=== PATIENT | female | born 1980 | race Caucasian/White ===

== ENCOUNTER 2021-06-07 05:18 | Emergency (ER) | payer MEDICARE, MEDICAID ==
[~2021-06-07] VITALS: Ht 157.5 cm; Wt 90.3 kg
[~2021-06-07 05:18] MED LIST: ADULT LOW DOSE81 MG PO; AMOXICILLIN 50500 MG PO; AMOXICILLIN875 MG PO; MACROBID 100 M100 M1 PO; NAPROSYN500 MG PO; NORCO 5-325 TA1 EACH PO; PHENERGAN12.5 MG RE; PRENATABS RX T1 EACH PO; PROMETHAZINE-C120 ML PO; ULTRAM 50MG TAB50 MG PO; VENTOLIN HFA 1818 GM INH; ZANTAC150 M2 PO
[2021-06-07 05:55] LABS: URINE BILIRUBIN NEGATIVE (Negative); URINE BLOOD 1+ (Negative); URINE CLARITY CLEAR; URINE COLOR YELLOW; URINE GLUCOSE-RANDOM NEGATIVE (Negative); URINE KETONES 1+ (Negative); URINE LEUKOCYTES-REFLEX TRACE (Negative); URINE NITRITE-REFLEX NEGATIVE (Negative); URINE PROTEIN NEGATIVE (Negative); URINE SPECIFIC GRAVITY 1.025 (1.005-1.030); URINE UROBILINOGEN 0.2 E.U./dl (0.2-1.0)
[2021-06-07 05:58] LABS: AMP/METHAMP Negative (Negative); BARBITURATES Negative (Negative); BENZODIAZEPINES Negative (Negative); COCAINE Negative (Negative); METHADONE Negative (Negative); OPIATES POSITIVE (Negative); PCP Negative (Negative); THC Negative (Negative)
[2021-06-07 06:04] LABS: ABSOLUTE LYMPHOCYTES 1.3 thou/uL (0.8-5.3); ABSOLUTE MONOCYTES 0.5 thou/uL (0.0-1.2); ABSOLUTE NEUTROPHILS 5.6 thou/uL (1.6-8.1); BASOPHILS 0.3 %; EOSINOPHILS 0.2 %; HEMOGLOBIN 8.4 gm/dL (12.0-15.0); LYMPHOCYTES 17.8 %; MCH 22.1 pg (26.0-34.0); MCHC 31.3 g/dL (28.0-37.0); MCV 70.5 fL (80.0-100.0); MONOCYTES 6.1 %; MPV 9.5 fl. (7.2-11.1); NUCLEATED RBCS 0 /100WBC; PLATELET COUNT* 229 thou/uL (150-400); POLYS 75.6 %; RBC 3.82 mil/uL (4.20-5.00); RDW-CV 16.3 % (10.5-14.5); WBC 7.4 thou/uL (4.0-11.0)
[2021-06-07 06:13] LABS: CALCIUM 8.8 mg/dL (8.5-10.1); CREATININE 0.8 mg/dL (0.6-1.3); POTASSIUM 3.6 mmol/L (3.5-5.1)
[2021-06-07 06:15] LABS: CASTS None Seen /LPF (None Seen); SQUAMOUS >10 Many /LPF (0-3)
[2021-06-07 06:16] LABS: CRYSTALS None Seen /LPF (None Seen); URINE WBC-REFLEX 6-15 Few /HPF (0-5)
[2021-06-07 06:25] LABS: ALBUMIN 3.7 g/dL (3.4-5.0); MAGNESIUM 2.2 mg/dL (1.8-2.4); TOTAL BILIRUBIN 0.4 mg/dL (<0.1-1.0); TOTAL PROTEIN 7.6 g/dL (6.4-8.2)
[2021-06-07 06:33] LABS: SALICYLATE < 2.8 mg/dL (2.8-20.0)
[2021-06-07 06:34] LABS: ACETAMINOPHEN < 2 ug/mL (10-30); ALCOHOL < 10 mg/dL (<10)
[2021-06-07 06:42] LABS: URINE RBC 3-10 Few /HPF (0-2)
[2021-06-07 07:18] LABS: HYPOCHROMASIA 2+; MICROCYTES 2+; PLATELET ESTIMATE ADEQUATE
[2021-06-07] MEDS ORDERED: BACTRIM DS TAB1 EAC1 PO (08:23)
[2021-06-07 08:30] VITALS: BP 176/88
--- NOTE | 2021-06-08 08:55 | EKG ---
[place] [address] ELECTROCARDIOGRAM REPORT Name: YEISON ALY Room: [facility]#: [id number] Admission: 06/07/21 Attend Phys: Discharge: 06/07/21 Date of : 76 Date of Service: 06/07/21521 Report #: [id number] THIS REPORT FOR: //name// [facility] ED Test Date: 2021-06-07 Test Time: 05:22:45 Pat Name: YEISON ALY Department: Room: Gender: F [employer]: [place] : 1980 Requested By: Charanjit Eng Order Number: [id number] MD: Davis Rausch Measurements Intervals Hines Rate: 67 P: 46 AL: 124 QRS: 21 QRSD: 99 T: 8 QT: 449 QTc: 474 Interpretive Statements Sinus rhythm artifact noted No previous ECG available for comparison Electronically Signed On 06-08-2021 8:55:04 [employer] by Davis Rausch [email or web address] <ELECTRONICALLY SIGNED> By: Davis Rausch MD, [facility] 06/08/2155 1 0522 Davis Rausch MD, FACC /EPI
== END 2021-06-07 08:31 | disposition home or self-care (01) ==
LOC: M.ERS 05:18
PROVIDERS: Emergency Medicine
DX: R55 Syncope and collapse (principal); F32.9 Major depressive disorder, single episode, unspecified; N39.0 Urinary tract infection, site not specified